=== PATIENT | male | born 1985 | race African-American/Black ===

== ENCOUNTER 2024-12-28 19:45 | Emergency (ER) | payer MEDICAID ==
[~2024-12-28] VITALS: Ht 180.3 cm; Wt 52.3 kg
[2024-12-28 19:53] VITALS: TEMP 98.4
[2024-12-28 23:30] VITALS: BP 138/88; PULSE 80; RESP 20; O2SAT 98
== END 2024-12-29 02:02 | disposition home or self-care (01) ==
LOC: EMS 19:47
DX: S90.31XA Contusion of right foot, initial encounter (principal); I10 Essential (primary) hypertension; W05.0XXA Fall from non-moving wheelchair, initial encounter; Y93.89 Activity, other specified; Y92.89 Other specified places as the place of occurrence of the external cause; Y99.8 Other external cause status
CPT/HCPCS: 99283